=== PATIENT | female | born 1935 | race Caucasian/White ===

== ENCOUNTER → 2016-10-31 | Outpatient (CLI) | payer MEDICARE, BC ==
[~2016-10-31] MED LIST: ASPIRIN EC81 M1 PO; CALCIUM 600 + D1 TAB PO; CALCIUM 600 +1 EA14 PO; CRESTOR40 MG PO; DEXILANT60 MG PO; ELIQUIS5 MG PO; FLECAINIDE ACE100 MG PO; FUROSEMIDE40 MG PO; LOVAZA1 G PO; MONTELUKAST SOD10 MG PO; NORCO1 TAB 10/3 PO; PLAVIX PO; TOPROL XL50 MG PO; VITAL-D RX TABL1 TAB PO
--- NOTE | ~2016-10-31 | US128 ---
[id number] [address] [address] [id number] O MR#: [id number] Acc #: [id number] NAME: MATTHEW WESTON : 1935 SEX: F STUDY DATE/TIME: 10/31/2016 11:51 UNIT: [facility] ROOM: STUDY DESCRIPTION: Thyroid Attending Physician: Joe Haas M.D. Referring Physician: Joe Haas M.D. Ordering Physician: Joe Haas M.D. Primary Care Physician: Rima Garcia A.P.R.N. MEDICAL IMAGING REPORT This report is preliminary unless electronic signature is present. EXAM Ultrasound thyroid gland. INDICATIONS Thyroid nodules. This is a followup examination. COMPARISON Comparison is made to a prior study from January 12, 2016. TECHNIQUE Tillman-scale and color Doppler sonographic images were obtained through the thyroid gland. FINDINGS The right lobe of the thyroid gland measures 3.1 x 1.6 x 1.3 cm, left lobe measures 3.6 x 1.0 x 1.2 cm. The isthmus measures up to about 5 mm in thickness. Patient is noted to have multiple cysts within both lobes of the thyroid gland. There is 1 mixed solid and cystic nodule identified within the left lobe of the thyroid gland which measures up to 0.7 x 0.6 x 0.9 mm, which is unchanged when compared to the prior examination. No new solid nodules are seen. IMPRESSION Scattered thyroid cysts, as well as a sub cm mixed solid and cystic nodule within the left lobe of thyroid gland, not significantly changed when compared to the January 12, 2016 exam. Dictated by... Jacqueline José M.D. THIS IS AN ELECTRONICALLY VERIFIED REPORT Jacqueline José M.D. at 11/02/2016 6:32 PM AFF/gz TD: 11/02/2016 14:22 JOB #: [id number] MEDICAL IMAGING REPORT Page 1 of 1
== END | disposition home or self-care (01) ==
LOC: SGUS 11:29
DX: E04.1 Nontoxic single thyroid nodule (principal); E04.2 Nontoxic multinodular goiter
CPT/HCPCS: 76536

== ENCOUNTER → 2016-11-23 | Outpatient (CLI) | payer MEDICARE, BC ==
--- NOTE | ~2016-11-23 | CR63 ---
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 : 1935 SEX: F STUDY DATE/TIME: 11/23/2016 11:52 UNIT: [facility] ROOM: STUDY DESCRIPTION: CR Chest 2 View Attending Physician: Rima Garcia A.P.R.N. Referring Physician: Rima Garcia A.P.R.N. Ordering Physician: Rima Garcia A.P.R.N. Primary Care Physician: Rima Garcia A.P.R.N. MEDICAL IMAGING REPORT This report is preliminary unless electronic signature is present. EXAM PA and lateral chest radiograph HISTORY Cough, chest pain, congestion for 2 days FINDINGS PA and lateral views are obtained. Heart size mildly enlarged. Vascular pattern is normal. Scarring in the left base. There is a large hiatal hernia. Compression fractures are seen in the lower thoracic spine with postop changes of vertebroplasty stable. CONCLUSION 1. Cardiomegaly. 2. Large hiatal hernia. 3. Left basilar scarring Dictated by... Pietro Koenig M.D. THIS IS AN ELECTRONICALLY VERIFIED REPORT Pietro Koenig M.D. at 11/24/2016 7:10 AM GEE/radha TD: 11/23/2016 15:41 JOB #: [id number] MEDICAL IMAGING REPORT Page 1 of 1
== END | disposition home or self-care (01) ==
LOC: SRAD 11:43
DX: R05 Cough (principal); I51.7 Cardiomegaly; K44.9 Diaphragmatic hernia without obstruction or gangrene; J98.4 Other disorders of lung
CPT/HCPCS: 71020

== ENCOUNTER → 2017-03-20 | Outpatient (CLI) | payer MEDICARE, BC ==
--- NOTE | ~2017-03-20 | MY11 ---
[facility]. 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 : 1935 SEX: F STUDY DATE/TIME: 03/20/2017 10:17 UNIT: [facility] ROOM: STUDY DESCRIPTION: MY Mammogram Screening Dig Cy Attending Physician: Rima Garcia A.P.R.N. Referring Physician: Rima Garcia A.P.R.N. Ordering Physician: Rima Garcia A.P.R.N. Primary Care Physician: Rima Garcia A.P.R.N. MEDICAL IMAGING REPORT This report is preliminary unless electronic signature is present. EXAM Bilateral digital screening mammogram with CAD, 03/20/2017 HISTORY No personal or family history of breast cancer. History of benign right breast lump excision approximately 30 years ago. No personal history of breast cancer or current complaints. COMPARISON Bilateral screening mammogram 12/06/2015 and 11/23/2014 and 11/05/2012. FINDINGS CC and MLO views were obtained of each breast utilizing digital technique and reviewed an FDA-approved CAD device. Architectural distortion features in the upper outer right breast are consistent with patient's surgical site, denoted by a linear marker external to the patient. Scattered fibroglandular densities are present bilaterally, greatest in the subareolar right breast. No new or suspicious nodules are identified. No nonsurgical architectural distortion is seen. Benign intramammary lymph node in the upper outer left breast is a stable finding. No suspicious clustered microcalcifications. IMPRESSION Routine screening mammogram is recommended in one year. Patients over the age of 40 are entered into a reminder system with target due date for the next mammogram. A result letter will also be sent to the patient. BIRADS: 2 Benign Finding [facility] A Service of [facility] RADIOLOGY TEXT RESULTS PATIENT: MATTHEW WESTON LOCATION: [facility] : 35 UNIT #: [id number] AGE: [address]: Rima Garcia SEX: F ORDER DR: Dictated by... Mary Dennis M.D. THIS IS AN ELECTRONICALLY VERIFIED REPORT Mary Dennis M.D. at 03/22/2017 8:49 AM Emma TD: 03/20/2017 14:03 JOB #: [id number] MEDICAL IMAGING REPORT Page 1 of 1
== END | disposition home or self-care (01) ==
LOC: SMAM 03-19 11:00
DX: Z12.31 Encounter for screening mammogram for malignant neoplasm of breast (principal); Z91.89 Other specified personal risk factors, not elsewhere classified
CPT/HCPCS: G0202